=== PATIENT | male | born 1970 | race Caucasian/White ===

== ENCOUNTER 2019-05-26 06:59 | Day surgery (SDC) | payer OTHER ==
[2019-05-26] MEDS ORDERED: Sodium Chloride 0.9% 1,000 ML IV SCH (07:30)
[2019-05-26] MEDS ORDERED: fentaNYL 100 MCG/2 ML SDV ONE (08:00)
[2019-05-26] MEDS ORDERED: Propofol 200 MG/20 ML SDV ONE (08:00)
[2019-05-26] MEDS ORDERED: Midazolam 1 MG/ML 2 ML SDV ONE (08:00)
--- NOTE | 2019-05-26 13:03 | OR ---
DATE OF PROCEDURE: 05/26/2019 SURGEON: Bran Goldberg MD PROCEDURE: Colonoscopy. FINDINGS: Descending colon polyp, approximately 8 mm, completely removed using hot snare wire. COMPLICATIONS: None. AERIAL ADVERTISER: None. ANESTHESIA: MAC. PREOPERATIVE DIAGNOSIS: Screening colonoscopy. POSTOPERATIVE DIAGNOSIS: Screening colonoscopy. RISKS: Risks, benefits, alternatives, and limitations including, but not limited to infection, bleeding, and perforation were explained to the patient, who wished to proceed. PROCEDURE IN DETAIL: The patient was placed in left lateral decubitus position. Digital rectal exam was performed without abnormality. The scope was introduced and advanced atraumatically to the ileocecal valve. The scope was brought back through the ascending, transverse, descending colon, and retroflexed. No evidence of old or new blood. The aforementioned polyps were identified and completely removed. No old or new blood. No diverticulosis or diverticulitis. No evidence of colitis. The patient tolerated the procedure well. Bran Goldberg MD /[id number]
== END 2019-05-26 09:34 | disposition home or self-care (01) ==
LOC: JP.SDS 06:59
PROVIDERS: ATTEND Surgery
DX: Z12.11 Encounter for screening for malignant neoplasm of colon (principal); K63.5 Polyp of colon; E78.5 Hyperlipidemia, unspecified; Z21 Asymptomatic human immunodeficiency virus [HIV] infection status; Z87.891 Personal history of nicotine dependence
CPT/HCPCS: J2250; J2704; J3010